=== PATIENT | female | born 1990 | race African-American/Black ===

== ENCOUNTER 2024-02-09 16:32 | Emergency (ER) | payer MEDICAID ==
[~2024-02-09] VITALS: Ht 165.1 cm; Wt 81.6 kg
[2024-02-09 16:44] VITALS: O2SAT 100
[2024-02-09 19:27] LABS: BASOPHILS % 0.5 % (0.0-2.0); EOSINOPHILS % 2.5 % (0.0-5.0); HEMATOCRIT. 39.3 % (36.0-48.0); HEMOGLOBIN. 12.9 g/dL (12.0-16.0); LYMPHOCYTES % 50.5 % (20.0-50.0); MEAN CORPUSCULAR HEMOGLOBIN 28.4 pg (28.0-32.0); MEAN CORPUSCULAR HGB CONC 32.9 g/dL (31.0-37.0); MEAN CORPUSCULAR VOLUME 86.4 fL (81.0-99.0); MEAN PLATELET VOLUME 8.1 fl (7.4-10.4); MONOCYTES % 7.2 % (2.0-8.0); NEUTROPHILS % 39.3 % (40.0-76.0); PLATELET 192 x1000/uL (130-400); RED BLOOD CELL COUNT 4.55 mill/uL (4.2-5.4); RED CELL DISTRIBUTION WIDTH 14.6 % (11.6-14.6); WHITE BLOOD COUNT 4.2 x1000/uL (4.5-11.0)
[2024-02-09 19:34] LABS: CHLORIDE 110 mEq/L (98-107); POTASSIUM 4.1 mEq/L (3.5-5.1); SODIUM 141 mEq/L (136-145)
[2024-02-09 19:35] LABS: CALCIUM 9.4 mg/dL (8.7-10.4); CARBON DIOXIDE 27 mEq/L (21-32)
[2024-02-09 19:40] LABS: CREATININE 0.8 mg/dL (0.6-1.0); GLUCOSE 85 mg/dL (70-105); HCG SCREEN NEGATIVE; UREA NITROGEN BLOOD 15 mg/dL (9-23)
[2024-02-09 19:41] LABS: PROTHROMBIN TIME 11.2 sec (9.6-11.0)
[2024-02-09 20:46] LABS: CLARITY URINE CLOUDY (CLEAR); COLOR URINE YELLOW (YELLOW); GLUCOSE URINE NEGATIVE (NEGATIVE); KETONES URINE NEGATIVE (NEGATIVE); LEUKOCYTE ESTERASE URINE NEGATIVE (NEGATIVE); NITRITE URINE NEGATIVE (NEGATIVE); OCCULT BLOOD URINE NEGATIVE (NEGATIVE); PROTEIN URINE NEGATIVE (NEGATIVE)
[2024-02-09] MEDS: ACETAMINOPHEN 325MG TABLET PO STA (20:48)
[2024-02-09] MEDS: IBUPROFEN 800MG TABLET PO STA (20:48)
[2024-02-09] MEDS ORDERED: IBUP-2030 MT (20:50)
[2024-02-09] MEDS ORDERED: ACET-2708 MT (20:50)
[2024-02-09 21:07] LABS: BACTERIA URINE 2+; RBC URINE 0-2 /hpf (0-2); SQUAMOUS EPITHELIAL CELL URINE 2+ /lpf (RARE/1+); WBC URINE 0-2 /hpf (0-2)
[2024-02-09 21:10] VITALS: BP 129/100; PULSE 63; RESP 16; TEMP 36.83628; O2SAT 100
== END 2024-02-09 21:53 | disposition home or self-care (01) ==
LOC: ER 16:32 → EDBD 16:32 → ER 21:53
DX: U07.1 COVID-19 (principal)
CPT/HCPCS: 36415; 71045; 80048; 81003; 81025; 84703; 85025; 87426; 99284